=== PATIENT | male | born 1960 | race Caucasian/White ===

== ENCOUNTER 2017-04-26 16:28 | Emergency (ER) | payer OTHER ==
[2017-04-26] MEDS ORDERED: LIDOCAINE 5% PATCH TOPICAL STA (16:44)
--- NOTE | 2017-04-26 16:49 | ED ---
General Adult HPI - General Chief complaint: Shortness of Breath Stated complaint: Difficulty Breathing Time Seen by Provider: 04/26/17 16:37 Source: patient Mode of arrival: ambulatory Limitations: no limitations - History of Present Illness Initial comments: This is a 57-year-old male who presents emergency department for a follow-up and a small pneumothorax that was diagnosed 3 days ago. He was up and gave her [place] when he had a slip and fall onto a stair 3 days ago. He went to a local hospital in that area who diagnosed him with 3 rib fractures and a small pneumothorax. He was told to follow-up yesterday and have a repeat chest x-ray however did not have a ride to get there so he presents here today. The patient denies any increased amount of pain, shortness of breath. He has not been coughing. No fevers or chills. He is here just for follow-up. - Related Data Home Medications Medication Instructions Recorded Confirmed HYDROcodone/APAP 7.5-325MG [[place] 1 tab PO QID PRN 04/26/17 04/26/17 7.5-325] Ibuprofen [Motrin] 200 mg PO TID PRN 04/26/17 04/26/17 Allergies Allergy/AdvReac Type Severity Reaction Status Date / Time No Known Allergies Allergy Verified 04/26/17 16:36 Review of Systems ROS Statement: Those systems with pertinent positive or pertinent negative responses have been documented in the HPI. ROS Other: All systems not noted in ROS Statement are negative. Past Medical History Past Medical History: Chest Pain / Angina Additional Past Medical History / Comment(s): coronary stent 12/29/2013. The patient otherwise denies medical history History of Any Multi-Drug Resistant Organisms: None Reported Past Surgical History: Heart Catheterization With Stent Additional Past Surgical History / Comment(s): coronary stent Past Anesthesia/Blood Transfusion Reactions: No Reported Reaction Date of Last Stent Placement:: 12/29/2013 Past Psychological History: No Psychological Hx Reported Smoking Status: Current every day smoker Past Alcohol Use History: Daily Past Drug Use History: None Reported General Exam - General Exam Comments Initial Comments: Constitutional: Awake alert Appears comfortable Head: Normocephalic atraumatic Eyes: no conjunctival injection No scleral icterus EOMI Neck: No JVD Supple Heart: Regular rate rhythm normal S1-S2 no murmurs Lungs: Mild rhonchi with deep inspiration on the right, no decreased breath sounds No wheezing No rales Abdomen: Soft nondistended nontender Extremities: Non edematous DP pulses intact Radial pulses intact Neuro: A&Ox3 No focal neurologic deficits Psych: Appropriate mood and affect Limitations: no limitations Course Vital Signs 04/26/17 04/26/17 16:31 16:58 Temperature 98.0 F Pulse Rate 78 Respiratory 16 18 Rate Blood Pressure 135/95 O2 Sat by Pulse 97 Oximetry Medical Decision Making - Medical Decision Making This is a 57-year-old male who came to the emergency department for follow-up for right-sided rib fractures and pneumothorax. Repeat chest x-ray does not show any evidence for pneumothorax. It does appear to have one nondisplaced rib fracture present on the chest x-ray. The patient's pain is well- controlled. He was given incentive spirometer to use at home. I encouraged him to use this 10 times an hour. He is to follow-up with his primary doctor. He has pain medications at home that he can take. Return if he has worsening or changing symptoms all questions were answered. Disposition Clinical Impression: Ribs, multiple fractures Disposition: HOME SELF-CARE Condition: Stable Instructions: Rib Fracture (ED) Additional Instructions: Use incentive spirometer 10x an hour when not active. Follow up with your primary doctor. Referrals: None,Stated [Primary Care Provider] - 1-2 days
[2017-04-26 16:59] VITALS: RESP 18
--- NOTE | 2017-04-26 17:36 | XR ---
EXAMINATION TYPE: XR chest 2V DATE OF EXAM: 04/26/2017 COMPARISON: 08/09/2011 HISTORY: Right rib fractures and previous pneumothorax TECHNIQUE: Frontal and lateral views of the chest are obtained. FINDINGS: There is no focal air space opacity, pleural effusion, or pneumothorax seen. No evidence o f pneumothorax is seen. Left basilar atelectasis is greater than right basilar atelectasis, both subs egmental. No displaced rib fractures are present. Small amount of subcutaneous emphysema is seen over the inferior right lateral chest wall. The cardiac silhouette size is within normal limits. The os seous structures are intact. IMPRESSION: 1. No acute cardiopulmonary process. 2. No evidence of pneumothorax or displaced rib fractures. 3. Bibasilar subsegmental atelectasis, left greater than right. 4. Mild subcutaneous emphysema over the right inferior lateral chest wall.
[2017-04-26 18:02] VITALS: BP 140/77; PULSE 80; TEMP 98.3
== END 2017-04-26 18:01 | disposition home or self-care (01) ==
LOC: EC 16:28
DX: S22.41XA Multiple fractures of ribs, right side, initial encounter for closed fracture (principal); W10.9XXA Fall (on) (from) unspecified stairs and steps, initial encounter; Z95.5 Presence of coronary angioplasty implant and graft; F17.200 Nicotine dependence, unspecified, uncomplicated
CPT/HCPCS: 71020; 99284

== ENCOUNTER 2021-03-12 15:25 | Emergency (ER) | payer OTHER ==
[2021-03-12 16:47] VITALS: TEMP 98.2
--- NOTE | 2021-03-12 17:05 | XR ---
EXAMINATION TYPE: XR shoulder complete RT DATE OF EXAM: 03/12/2021 COMPARISON: NONE HISTORY: Pain TECHNIQUE: Shoulder examined in 3 projections FINDINGS: The humeral head articulates with the glenoid. The acromio-clavicular junction is normal. No acute fractures or dislocations are evident. A follow up study can be performed 7-10 days from acute trauma for continued pain. IMPRESSION: 1. Normal three-view right Shoulder
[2021-03-12] MEDS ORDERED: KETOROLAC 15 MG/ML 1 ML VIAL IM STA (18:13)
--- NOTE | 2021-03-12 19:08 | XR ---
EXAMINATION TYPE: XR humerus RT DATE OF EXAM: 03/12/2021 COMPARISON: NONE HISTORY: Pain TECHNIQUE: 2 views FINDINGS: Glenohumeral joint is intact. Elbow joint appears intact. I see no fracture nor dislocation . IMPRESSION: Negative right humerus exam.
[2021-03-12] MEDS ORDERED: ACET/COD 300 MG/30 MG STARTER PACK 6 TAB BTL PO STA (19:13)
--- NOTE | 2021-03-12 19:15 | ED ---
General Adult HPI - General Chief complaint: Fall Stated complaint: shoulder injury Time Seen by Provider: 03/12/21 17:41 Source: patient, RN notes reviewed Mode of arrival: ambulatory Limitations: no limitations - History of Present Illness Initial comments: 61-year-old male with a past medical history of CAD, chest pain presents to the emergency room for a chief complaint of right arm pain. Patient states he slipped and fell backwards today and landed on his right elbow. States this causes pain in his right shoulder. Patient reports it is painful to move his shoulder. Patient did not hit his head. Patient denies any back pain. Patient denies any other injury.Patient has no other complaints at this time including shortness of breath, chest pain, abdominal pain, nausea or vomiting, headache, or visual changes. - Related Data Home Medications Medication Instructions Recorded Confirmed HYDROcodone/APAP 7.5-325MG [[place] 1 tab PO QID PRN 04/26/17 04/26/17 7.5-325] Ibuprofen [Motrin] 200 mg PO TID PRN 04/26/17 04/26/17 Allergies Allergy/AdvReac Type Severity Reaction Status Date / Time No Known Allergies Allergy Verified 03/12/21 16:47 Review of Systems ROS Statement: Those systems with pertinent positive or pertinent negative responses have been documented in the HPI. ROS Other: All systems not noted in ROS Statement are negative. Past Medical History Past Medical History: Coronary Artery Disease (CAD), Chest Pain / Angina Additional Past Medical History / Comment(s): coronary stent 12/29/2013. The patient otherwise denies medical history History of Any Multi-Drug Resistant Organisms: None Reported Past Surgical History: Heart Catheterization With Stent Additional Past Surgical History / Comment(s): coronary stent Past Anesthesia/Blood Transfusion Reactions: No Reported Reaction Date of Last Stent Placement:: 12/29/2013 Past Psychological History: No Psychological Hx Reported Smoking Status: Current every day smoker Past Alcohol Use History: Daily Past Drug Use History: None Reported General Exam Limitations: no limitations General appearance: alert, in no apparent distress Head exam: Present: atraumatic, normocephalic, normal inspection Eye exam: Present: normal appearance, PERRL, EOMI. Absent: scleral icterus, conjunctival injection, periorbital swelling ENT exam: Present: normal exam, mucous membranes moist Neck exam: Present: normal inspection. Absent: tenderness, meningismus, lymphadenopathy Respiratory exam: Present: normal lung sounds bilaterally. Absent: respiratory distress, wheezes, rales, rhonchi, stridor Cardiovascular Exam: Present: regular rate, normal rhythm, normal heart sounds. Absent: systolic murmur, diastolic murmur, rubs, gallop, clicks Extremities exam: Present: tenderness (Generalized tenderness to the right shoulder.), normal capillary refill (Capillary refill less than 2 seconds right upper extremity. Radial pulse 2+ right upper extremity.), other (Sensation intact right upper extremity.). Absent: full ROM (Patient has about 30 flexion and 30 abduction of the right shoulder which is limited by pain.), pedal edema, joint swelling, calf tenderness Course Vital Signs 03/12/21 16:43 Temperature 98.2 F Pulse Rate 78 Respiratory 20 Rate Blood Pressure 156/91 O2 Sat by Pulse 99 Oximetry Medical Decision Making - Medical Decision Making Shoulder and humerus x-rays were reviewed which were unremarkable. I discussed risks versus benefits of sling, at this time given risk of frozen shoulder we will not send patient home with a sling. We will give him Tylenol 3 for home to take with Motrin. He will follow up with orthopedics. He will return for any worsening symptoms. Disposition Clinical Impression: Arm pain Disposition: HOME SELF-CARE Condition: Good Instructions (If sedation given, give patient instructions): Shoulder Pain (ED) Additional Instructions: Take Motrin for pain. If pain is severe take Tylenol [address] machinery while taking this. Please follow-up with orthopedics in one to 2 days. Return to the emergency room for any worsening symptoms. Is patient prescribed a controlled substance at d/c from ED?: No Referrals: Anthony Ron DO [Doctor of Osteopathic Medicine] - 1-2 days Time of Disposition: 19:13
[2021-03-12 19:56] VITALS: BP 148/88; PULSE 82; RESP 16
== END 2021-03-12 19:29 | disposition home or self-care (01) ==
LOC: EC 15:25
DX: M25.511 Pain in right shoulder (principal); I25.10 Atherosclerotic heart disease of native coronary artery without angina pectoris; F17.200 Nicotine dependence, unspecified, uncomplicated; Z79.891 Long term (current) use of opiate analgesic; Z79.1 Long term (current) use of non-steroidal anti-inflammatories (NSAID); Z95.5 Presence of coronary angioplasty implant and graft
CPT/HCPCS: 96372 ×2; 99283 ×2; 73030; 73060; J1885